=== PATIENT | female | born 1980 | race African-American/Black ===

== ENCOUNTER 2017-06-13 21:33 | Emergency (ER) | payer OTHER ==
[~2017-06-13] VITALS: Ht 162.6 cm; Wt 59.0 kg
[~2017-06-13 21:33] MED LIST: ALBUTEROL SULF8.5 GM INH; AMOXICILLIN500 MG ORAL; AZITHROMYCIN250 MG ORAL; CLARITIN10 M2 ORAL; FAMOTIDINE20 MG ORAL; IBUPROFEN600 MG ORAL; NKM; PREDNISONE20 M1 PO; PROMETH-CODEIN 65 ML PO; PROMETHAZINE-D118 ML ORAL
[2017-06-13 22:20] VITALS: BP 127/80
[2017-06-13] MEDS ORDERED: METROGEL-VAGINA70 G1 VAGIN (23:15)
[2017-06-13] MEDS ORDERED: KEFLEX500 MG ORAL (23:15)
[2017-06-13 23:22] LABS: APPEARANCE,URINE SLIGHTLY CLOUDY; KETONES,URINE NEGATIVE (NEGATIVE); LEUKOCYTE ESTERASE ,URINE 2+ (NEGATIVE); NITRITE,URINE NEGATIVE (NEGATIVE); PH,URINE 8 (4.5-8.0); PROTEIN,URINE NEGATIVE (NEGATIVE); UROBILINOGEN,URINE 1 MG/DL (0.0-1.0)
[2017-06-13 23:29] VITALS: BP 116/71
[2017-06-13 23:33] LABS: BACTERIA,URINE MANY /HPF; SQUAMOUS EPITHELIAL CELL,UR MODERATE /LPF (NONE/OCC)
[2017-06-13 23:34] LABS: TRICHOMONAS,URINE FEW /HPF; WBC,URINE 30-40 /HPF (0 - 2)
--- NOTE | 2017-06-14 03:24 | Emergency Room Report ---
History of Present Illness General Chief Complaint: Female Urogenital Problems Source: Patient Present Illness HPI Patient 37-year-old female who presented after increased dysuria. The patient gradual onset of symptoms. Patient stated that she had increased urinary frequency with associated increased vaginal discharge. Patient denied any to whitish discoloration of discharge. She stated this was slightly malodorous. She denied any fever. Patient denied vomiting Allergies: Uncoded Allergies: DIMETAP (Allergy, Intermediate, Rash, 07/19/15) Patient History Last Menstrual Period: 06/02/17 Now: No Reviewed Nursing Documentation: PMH: Agreed, PSxH: Agreed Nursing Documentation-PMH Past Medical History: No Stated History Hx Hypertension: Yes Hx Asthma: Yes Physical Exam Vital Signs Date Time Temp Pulse Resp B/P Pulse Ox O2 Delivery O2 Flow Rate FiO2 06/13/17 21:40 98.2 87 16 92/63 99 Room Air General Appearance: well appearing, no apparent distress, alert, GCS 15 Head: normocephalic, atraumatic ENT: hearing grossly normal, normal voice Neck: full range of motion, supple Respiratory: no respiratory distress, speaking full sentences Cardiovascular #1: normal peripheral pulses, regular rate, rhythm, no edema Gastrointestinal: normal bowel sounds, non tender, soft, no mass Genitourinary: normal inspection, no CVA tenderness Musculoskeletal: no calf tenderness Neurologic: alert, oriented x3, normal gait Psychiatric: mood/affect normal Skin: no rash Medical Decision Making Diagnostic Impression: Primary Impression: Urinary tract infection Additional Impression: Trichomonas infection ER Course Patient presented for dysuria. Differential diagnosis included was not limited to appendicitis, urinary tract infection, pelvic inflammatory disease, urethritis, herpes among others. Patient's benign exam and does not appear to require any further imaging or laboratory testing at this time. Urine test was negative. The patient is advised followup with her [employer] for evaluation of her IUD. The patient is given prescription for MetroGel and Keflex. The patient is advised to follow up with primary care doctor in 1-2 days. Patient is advised to return if any worsening condition or if any changes in status that are concerning. Labs Test 06/13/17 22:17 Urine Color Pale yellow Urine Appearance Slightly cloudy Urine pH 8 (4.5-8.0) Urine Specific [place] 1.015 (1.005-1.035) Urine Protein Negative (NEGATIVE) Urine Glucose (UA) Negative (NEGATIVE) Urine Ketones Negative (NEGATIVE) Urine Occult Blood Negative (NEGATIVE) Urine Nitrite Negative (NEGATIVE) Urine Bilirubin Negative (NEGATIVE) Urine Urobilinogen 1 MG/DL (0.0-1.0) Urine Leukocyte Esterase 2+ (NEGATIVE) Urine RBC 2-4 /HPF (0 - 2) Urine WBC 30-40 /HPF (0 - 2) Urine Squamous Epithelial Cells Moderate /LPF (NONE/OCC) Urine Bacteria Many /HPF (NONE) Urine Trichomonas Few /HPF (NONE) Urine HCG, Qualitative Negative Last Vital Signs Date Time Temp Pulse Resp B/P Pulse Ox O2 Delivery O2 Flow Rate FiO2 06/13/17 23:29 72 18 116/71 99 Room Air 06/13/17 22:20 98.8 Status: improved Disposition: HOME, SELF-CARE Condition: Stable Scripts Metronidazole* (METROGEL-VAGINAL*) 70 Gm Gel.w.appl 1 APPL VAGIN EVERY 12 HOURS, #70 GM Prov: Maycol Garcia 06/13/17 Cephalexin* (KEFLEX*) 500 Mg Capsule 500 MG ORAL Q6H, #28 CAP 0 Refills Prov: Maycol Garcia 06/13/17 Patient Instructions: Urinary Tract Infection Maycol Garcia Jun 14, 2017 03:23
== END 2017-06-13 23:31 | disposition home or self-care (01) ==
LOC: EMR 22:05
DX: N39.0 Urinary tract infection, site not specified (principal); A59.9 Trichomoniasis, unspecified; I10 Essential (primary) hypertension; J45.909 Unspecified asthma, uncomplicated
CPT/HCPCS: 81003; 81025; 87086; 87181; 99284

== ENCOUNTER 2017-06-28 21:13 | Emergency (ER) | payer OTHER ==
[~2017-06-28] VITALS: Ht 165.1 cm; Wt 59.0 kg
[~2017-06-28 21:13] MED LIST changes: +KEFLEX500 MG ORAL; +METROGEL-VAGINA70 G1 VAGIN
[2017-06-28] MEDS ORDERED: NKM (21:31)
--- NOTE | 2017-06-28 21:49 | Emergency Room Report ---
History of Present Illness General Chief Complaint: Upper Extremity Injury Source: Patient Present Illness HPI Is a 37-year-old female who is right-hand dominant. She presents with chief complaint of left thumb pain. She was riding a mechanical bull at a constitution party last night. She was multiple. She complaining of left thumb pain. Also with bruising to the left lower leg. Pain is 9/10. Worse with movement. No other injury. Did not pass out. Allergies: Uncoded Allergies: DIMETAP (Allergy, Intermediate, Rash, 07/19/15) Patient History Past Medical History: see triage record, old chart reviewed Past Surgical History: none Pertinent Family History: none Social History: Denies: smoking Last Menstrual Period: May Now: No Immunizations: other Reviewed Nursing Documentation: PMH: Agreed, PSxH: Agreed Nursing Documentation-PMH Hx Hypertension: Yes Hx Asthma: Yes Review of Systems Eye: Denies: eye pain, blurred vision ENT: Denies: ear pain, nose congestion, throat swelling Respiratory: Denies: cough, shortness of breath Cardiovascular: Denies: chest pain, palpitations Gastrointestinal: Denies: abdominal pain, diarrhea, nausea, vomiting Musculoskeletal: Reports: joint pain, muscle pain, Denies: back pain Skin: Denies: rash Neurological: Denies: headache, numbness Endocrine: Denies: increased thirst, increased urine Hematologic/Lymphatic: Denies: easy bruising All Other Systems: negative except mentioned in HPI Physical Exam Vital Signs Date Time Temp Pulse Resp B/P (MAP) Pulse Ox O2 Delivery O2 Flow Rate FiO2 06/28/17 21:24 98.1 72 16 113/78 99 Room Air vitals varun Sp02 EP Interpretation: reviewed, normal General Appearance: well appearing, no apparent distress, alert Head: normocephalic, atraumatic Eyes: bilateral eye PERRL, bilateral eye EOMI ENT: hearing grossly normal, normal pharynx Neck: full range of motion, supple, no meningismus Respiratory: chest non-tender, lungs clear, normal breath sounds Cardiovascular #1: regular rate, rhythm, no murmur Gastrointestinal: normal bowel sounds, non tender, no mass, no organomegaly, no bruit, non-distended Musculoskeletal: back normal, gait/station normal, normal range of motion, other - Left thumb: Tenderness of the base of the thumb. Mild edema. No deformity. No laxity. Sensation normal. Psychiatric: mood/affect normal Skin: warm/dry Procedures Splinting Splinting : Consent: Verbal Location: Left thumb Splint: thumb spica Pre-Proc Neuro Vasc Exam: normal Post-Proc Neuro Vasc Exam: normal Patient Tolerated: Well Complications: None Medical Decision Making Diagnostic Impression: Primary Impression: Left thumb sprain Qualified Codes: S63.642A - Sprain of metacarpophalangeal joint of left thumb , initial encounter Additional Impression: Contusion of left lower leg, initial encounter ER Course Patient with soft tissue injury secondary to fall. No fracture or dislocation. Other X-Ray Diagnostic Results Other X-Ray Diagnostic Results : X-Ray ordered: Left thumb x rays # of Views/Limited Vs Complete: 3 View Indication: Pain EP Interpretation: Yes Interpretation: no dislocation, no soft tissue swelling, no fractures Impression: No acute disease Interpreting ER Provider: Electronically signed by Raffy Britt MD Last Vital Signs Date Time Temp Pulse Resp B/P (MAP) Pulse Ox O2 Delivery O2 Flow Rate FiO2 06/28/17 21:24 98.1 72 16 113/78 99 Room Air Status: improved Disposition: HOME, SELF-CARE Condition: Stable Scripts Ibuprofen* (MOTRIN*) 600 Mg Tablet 600 MG ORAL THREE TIMES A DAY, #30 TAB 0 Refills Prov: RAFFY BRITT M.D. 06/28/17 Additional Instructions: Followup with your DrTish in 7 days. Ice pack to the area. Return if symptom worsen. RAFFY BRITT M.D. Jun 28, 2017 21:49
[2017-06-28] MEDS ORDERED: Norco 5mg/325mg tab ORAL ONE (22:00)
[2017-06-28] MEDS ORDERED: IBUPROFEN600 MG ORAL (22:37)
[2017-06-28 22:46] VITALS: BP 120/88
--- NOTE | 2017-06-29 09:57 | Diagnostic Imaging Report ---
Indication: PAIN Technique: 3 views of the left first digit Comparison: None Findings: No acute fractures. No dislocations. Joint spaces are preserved. No radiopaque foreign body Impression: Negative
== END 2017-06-28 22:46 | disposition home or self-care (01) ==
LOC: EMR 21:40
DX: S63.642A Sprain of metacarpophalangeal joint of left thumb, initial encounter (principal); S80.12XA Contusion of left lower leg, initial encounter; I10 Essential (primary) hypertension; J45.909 Unspecified asthma, uncomplicated; Z88.8 Allergy status to other drugs, medicaments and biological substances; W17.89XA Other fall from one level to another, initial encounter; Y92.9 Unspecified place or not applicable
CPT/HCPCS: 99283

== ENCOUNTER 2017-11-08 17:47 | Emergency (ER) | payer MEDICAID, OTHER ==
[~2017-11-08] VITALS: Ht 162.6 cm; Wt 59.0 kg
[2017-11-08] MEDS ORDERED: NKM (18:05)
[2017-11-08 18:36] LABS: APPEARANCE,URINE CLEAR; BILIRUBIN, URINE NEGATIVE (NEGATIVE); COLOR,URINE PALE YELLOW; GLUCOSE, URINE (UA) NEGATIVE (NEGATIVE); KETONES,URINE NEGATIVE (NEGATIVE); LEUKOCYTE ESTERASE ,URINE 3+ (NEGATIVE); NITRITE,URINE NEGATIVE (NEGATIVE); PH,URINE 6.5 (4.5-8.0); PROTEIN,URINE NEGATIVE (NEGATIVE); UROBILINOGEN,URINE 1 MG/DL (0.0-1.0)
[2017-11-08 18:42] LABS: BASOPHILS % (AUTO) 1.9 % (0.0-2.0); EOSINOPHILS % (AUTO) 0.3 % (0.0-3.0); HEMATOCRIT 42.1 % (37.0-47.0); HEMOGLOBIN 12.7 G/DL (12.0-16.0); MEAN CORPUSCULAR VOLUME 93 FL (80-99); MONOCYTES % (AUTO) 6.4 % (1.0-10.0); NEUTROPHILS % (AUTO) 73.4 % (45.0-75.0); PLATELET COUNT 173 K/UL (150-450); RED BLOOD COUNT 4.51 M/UL (4.20-5.40); WHITE BLOOD COUNT 12.1 K/UL (4.8-10.8)
[2017-11-08 18:44] LABS: INR 1.1 (0.9-1.1)
[2017-11-08 18:45] LABS: ANION GAP 8 mmol/L (5-15); BLOOD UREA NITROGEN 12 mg/dL (7-18); CALCIUM 9.2 MG/DL (8.5-10.1); CARBON DIOXIDE 29 MMOL/L (21-32); CHLORIDE 105 MMOL/L (98-107); CREATININE 1.1 MG/DL (0.55-1.30); POTASSIUM 3.5 MMOL/L (3.5-5.1); SODIUM 142 MMOL/L (136-145)
[2017-11-08 18:51] LABS: ALANINE AMINOTRANSFERASE 19 U/L (12-78); ALBUMIN 3.6 G/DL (3.4-5.0); ALBUMIN/GLOBULIN RATIO 0.9 (1.0-2.7); ALKALINE PHOSPHATASE 111 U/L (46-116); ASPARTATE AMINO TRANSFERASE 14 U/L (15-37); BILIRUBIN,TOTAL 0.2 MG/DL (0.2-1.0)
[2017-11-08 19:48] VITALS: BP 129/79
[2017-11-08] MEDS ORDERED: IBUPROFEN600 MG ORAL (20:22)
[2017-11-08] MEDS ORDERED: NITROFURANTOIN100 M2 ORAL (20:22)
[2017-11-08 20:30] VITALS: BP 129/79
--- NOTE | 2017-11-08 21:04 | Emergency Room Report ---
History of Present Illness General Chief Complaint: Abdominal Pain Source: Patient Present Illness HPI The patient is a 37-year-old female who denies any medical history presenting for right-sided abdominal pain for the past 2 days. Pain is an 8/10 pinching sensation to the right mid and lower abdomen. Does not radiate. Worse with movement. She also admits to increased urinary frequency but denies other symptoms including nausea, vomiting, fever, chills, hematuria, dysuria, vaginal discharge Allergies: Uncoded Allergies: DIMETAP (Allergy, Intermediate, Rash, 07/19/15) Patient History Past Medical History: see triage record Pertinent Family History: none Last Menstrual Period: 10/17/2017 Now: No Reviewed Nursing Documentation: PMH: Agreed, PSxH: Agreed Nursing Documentation-PMH Past Medical History: No Stated History Hx Hypertension: Yes Hx Asthma: Yes Review of Systems All Other Systems: negative except mentioned in HPI Physical Exam Vital Signs Date Time Temp Pulse Resp B/P (MAP) Pulse Ox O2 Delivery O2 Flow Rate FiO2 11/08/17 18:02 100.4 99 18 122/84 99 Room Air Sp02 EP Interpretation: reviewed, normal General Appearance: no apparent distress, alert, GCS 15, non-toxic Head: normocephalic, atraumatic Eyes: bilateral eye normal inspection, bilateral eye PERRL ENT: hearing grossly normal, normal pharynx, no angioedema, normal voice Neck: full range of motion, supple/symm/no masses Respiratory: chest non-tender, lungs clear, normal breath sounds, speaking full sentences Cardiovascular #1: regular rate, rhythm, no edema Gastrointestinal: tenderness - RUQ, RLQ Musculoskeletal: back normal, gait/station normal, normal range of motion, non- tender Neurologic: alert, oriented x3, responsive, motor strength/tone normal, sensory intact, speech normal Psychiatric: judgement/insight normal, memory normal, mood/affect normal, no suicidal/homicidal ideation Skin: normal color, no rash, warm/dry, well hydrated Medical Decision Making PA Attestation Dr. Weston is my supervising physician. Patient management was discussed with my supervising physician Diagnostic Impression: Primary Impression: UTI (urinary tract infection) Qualified Codes: N39.0 - Urinary tract infection, site not specified Additional Impression: Abdominal pain Qualified Codes: R10.9 - Unspecified abdominal pain ER Course The patient is a 37-year-old female who denies any medical history presenting for right-sided abdominal pain for the past 2 days Differential diagnoses considered include but not limited to gastritis, pancreatitis, appendicitis, AAA, ACS, , UTI PE: Initially febrile at 100.4F NAD. Abdomen: Normal appearance. Non distended. No ecchymosis. Normal BS. Non TTP. No McBurney point tenderness. No guarding. No CVA tenderness CT: No appendicitis. No SBO or diverticulitis. No hydronephrosis. Possible stranding in pelvis. Will correlates with possible cystitis or PID Labs: leukocytosis of 12.1 with UA showing WBCs and leukocyte esterase The patient will be treated for UTI. ER precautions are given Labs Test 11/08/17 18:08 11/08/17 18:21 Urine Color Pale yellow Urine Appearance Clear Urine pH 6.5 (4.5-8.0) Urine Specific [place] 1.010 (1.005-1.035) Urine Protein Negative (NEGATIVE) Urine Glucose (UA) Negative (NEGATIVE) Urine Ketones Negative (NEGATIVE) Urine Occult Blood Negative (NEGATIVE) Urine Nitrite Negative (NEGATIVE) Urine Bilirubin Negative (NEGATIVE) Urine Urobilinogen 1 MG/DL (0.0-1.0) Urine Leukocyte Esterase 3+ (NEGATIVE) Urine RBC 0-2 /HPF (0 - 2) Urine WBC 5-10 /HPF (0 - 2) Urine Squamous Epithelial Cells Few /LPF (NONE/OCC) Urine Bacteria Few /HPF (NONE) Urine HCG, Qualitative Negative White Blood Count 12.1 K/UL (4.8-10.8) Red Blood Count 4.51 M/UL (4.20-5.40) Hemoglobin 12.7 G/DL (12.0-16.0) Hematocrit 42.1 % (37.0-47.0) Mean Corpuscular Volume 93 FL (80-99) Mean Corpuscular Hemoglobin 28.1 PG (27.0-31.0) Mean Corpuscular Hemoglobin Concent 30.1 G/DL (32.0-36.0) Red Cell Distribution Width 11.0 % (11.6-14.8) Platelet Count 173 K/UL (150-450) Mean Platelet Volume 9.7 FL (6.5-10.1) Neutrophils (%) (Auto) 73.4 % (45.0-75.0) Lymphocytes (%) (Auto) 18.0 % (20.0-45.0) Monocytes (%) (Auto) 6.4 % (1.0-10.0) Eosinophils (%) (Auto) 0.3 % (0.0-3.0) Basophils (%) (Auto) 1.9 % (0.0-2.0) Prothrombin Time 11.2 SEC (9.30-11.50) Prothromb Time International Ratio 1.1 (0.9-1.1) Activated Partial Thromboplast Time 28 SEC (23-33) Sodium Level 142 MMOL/L (136-145) Potassium Level 3.5 MMOL/L (3.5-5.1) Chloride Level 105 MMOL/L (98-107) Carbon Dioxide Level 29 MMOL/L (21-32) Anion Gap 8 mmol/L (5-15) Blood Urea Nitrogen 12 mg/dL (7-18) Creatinine 1.1 MG/DL (0.55-1.30) Estimat Glomerular Filtration Rate > 60 mL/min (>60) Glucose Level 99 MG/DL (74-106) Calcium Level 9.2 MG/DL (8.5-10.1) Total Bilirubin 0.2 MG/DL (0.2-1.0) Aspartate Amino Transf (AST/SGOT) 14 U/L (15-37) Alanine Aminotransferase (ALT/SGPT) 19 U/L (12-78) Alkaline Phosphatase 111 U/L (46-116) Total Protein 7.8 G/DL (6.4-8.2) Albumin 3.6 G/DL (3.4-5.0) Globulin 4.2 g/dL Albumin/Globulin Ratio 0.9 (1.0-2.7) Lipase 93 U/L (73-393) Lab Results Impression leukocytosis of 12.1 with UA showing WBCs and leukocyte esterase CT/MRI/US Diagnostic Results CT/MRI/US Diagnostic Results : Imaging Test Ordered: CT ABD/PELVIS Impression No appendicitis. No SBO or diverticulitis. No hydronephrosis. Possible stranding in pelvis. Will correlates with possible cystitis or PID Last Vital Signs Date Time Temp Pulse Resp B/P (MAP) Pulse Ox O2 Delivery O2 Flow Rate FiO2 11/08/17 20:30 99.4 74 14 129/79 97 Room Air Status: improved Disposition: HOME, SELF-CARE Condition: Improved Scripts Nitrofurantoin Monohyd/M-Cryst* (MACROBID 100 MG*) 100 Mg Capsule 100 MG ORAL EVERY 12 HOURS, #14 CAP Prov: ORIANA ADHIKARI 11/08/17 Ibuprofen* (MOTRIN*) 600 Mg Tablet 600 MG ORAL Q8H Y for For Pain, #30 TAB 0 Refills Prov: ORIANA ADHIKARI 11/08/17 Patient Instructions: Abdominal Pain, Adult Additional Instructions: I discussed my findings with the patient. All questions and concerns have been answered. Treatment and medication compliance have been addressed. I advised the patient that they need to follow up with PMD in 3-5 days. Return to ED if symptoms worsen, new symptoms arise, or if needed for any reason. Patient verbalized understanding of discharge instructions. ORIANA ADHIKARI Nov 08, 2017 21:04
--- NOTE | 2017-11-09 16:59 | Diagnostic Imaging Report ---
Indication: Abdominal pain Technique: CT of the abdomen and pelvis utilizing automated exposure control with intravenous contrast. Venous scanning performed. CT dose: Total DLP 558.81 mGycm; CTDI vol 10.04 mGy Comparison: None Findings: Dependent atelectasis noted in the lung bases. Heart is borderline enlarged. There is no pericardial effusion. Bilateral breast implants noted. Multiple subcentimeter, well-circumscribed low-attenuation lesions are noted within the right hepatic lobe which are too small to definitively characterize but likely represent simple hepatic cysts. Gallbladder is contracted, limiting its evaluation but otherwise unremarkable. Spleen, adrenal glands and pancreas are grossly unremarkable. Kidneys enhance symmetrically. No urinary tract stone or hydronephrosis bilaterally. Bladder is unremarkable in appearance on CT. An IUD is noted in place. There is a possible 1.4 cm left adnexal cyst. Right ovary not definitively visualized. There may be possible stranding in the pelvis. There is no bowel obstruction. No free intraperitoneal air or fluid is identified. No appreciable focal or diffuse abnormal bowel wall thickening is seen. Appendix is not definitively identified however there is no focal inflammatory change in the right lower quadrant to suggest appendicitis. Abdominal aorta is normal in caliber. No bulky abdominal or pelvic lymphadenopathy is appreciated. No acute osseous abnormality seen. Impression: No evidence of small bowel obstruction. No definite evidence to suggest appendicitis. Possible mild stranding in the pelvis. Correlate clinically for cystitis or pelvic inflammatory disease. IUD in place. Likely small left adnexal cyst. Additional findings as above. This corresponds with the statrad preliminary report.. The CT scanner at [facility] is accredited by the [employer] and the scans are performed using protocols designed to limit radiation exposure to as low as reasonably achievable to attain images of sufficient resolution adequate for diagnostic evaluation.
== END 2017-11-08 20:30 | disposition home or self-care (01) ==
LOC: EMR 18:05
DX: N39.0 Urinary tract infection, site not specified (principal); I10 Essential (primary) hypertension; J45.909 Unspecified asthma, uncomplicated; Z97.5 Presence of (intrauterine) contraceptive device
CPT/HCPCS: 36415; 74177; 80053; 81003; 81025; 83690; 85025; 85610; 85730; 96360; 99284; Q9967

== ENCOUNTER 2018-10-06 11:33 | Emergency (ER) | payer MEDICAID ==
[~2018-10-06] VITALS: Ht 165.1 cm; Wt 59.0 kg
[~2018-10-06 11:33] MED LIST changes: +NITROFURANTOIN100 M2 ORAL
[2018-10-06 11:43] VITALS: BP 123/79
[2018-10-06] MEDS ORDERED: VALACYCLOVIR500 MG ORAL (12:02)
[2018-10-06 12:07] VITALS: BP 123/79
--- NOTE | 2018-10-06 13:25 | Emergency Room Report ---
History of Present Illness General Chief Complaint: Medication Refill Source: Patient, Medical Record Present Illness HPI Patient presents with reports of a genital herpes breakout Reports that she had contacted her primary physician but was not able to be seen Symptoms ongoing for the past 2 days The last time she had a flareup requiring medication was approximately 12 months ago She has some minimal discomfort Denies any fevers or chills denies any vaginal discharge denies any flank pain Allergies: Coded Allergies: No Known Allergies (Unverified , 10/06/18) Patient History Past Medical History: see triage record Pertinent Family History: none Now: No Reviewed Nursing Documentation: PMH: Agreed; PSxH: Agreed Nursing Documentation-PMH Hx Hypertension: Yes Hx Asthma: Yes Review of Systems All Other Systems: negative except mentioned in HPI Physical Exam Vital Signs Date Time Temp Pulse Resp B/P (MAP) Pulse Ox O2 Delivery O2 Flow Rate FiO2 10/06/18 11:43 98.4 72 19 123/79 98 Room Air Sp02 EP Interpretation: reviewed, normal General Appearance: well appearing, no apparent distress Head: normocephalic, atraumatic Eyes: bilateral eye PERRL, bilateral eye EOMI ENT: normal pharynx Neck: full range of motion, supple Respiratory: lungs clear Cardiovascular #1: regular rate, rhythm Gastrointestinal: non tender Musculoskeletal: normal inspection Neurologic: alert, oriented x3, responsive Skin: other - Pelvic exam deferred Lymphatic: no adenopathy Medical Decision Making Diagnostic Impression: Primary Impression: genital herpes ER Course Given the patient's clinical history exam and presentation Sounds to have findings consistent with genital herpes outbreak patient is provided with her previous medications And stable for close outpatient follow-up Last Vital Signs Date Time Temp Pulse Resp B/P (MAP) Pulse Ox O2 Delivery O2 Flow Rate FiO2 10/06/18 12:07 98.4 72 19 123/79 98 Room Air Status: unchanged Disposition: HOME, SELF-CARE Condition: Stable Scripts Valacyclovir Hcl* (VALTREX*) 500 Mg Tablet 500 MG ORAL TWICE A DAY for 5 Days, TAB Prov: Ciro Lopes DO 10/06/18 Referrals: NON PHYSICIAN (PCP) Patient Instructions: Genital Herpes Additional Instructions: Patient is provided with the discharge instructions notified to follow up with primary doctor in the next 2-3 days otherwise return to the er with any worsening symptoms. Please note that this report is being documented using [employer] technology. This can lead to erroneous entry secondary to incorrect interpretation by the dictating instrument. Ciro Lopes DO Oct 06, 2018 13:25
== END 2018-10-06 12:07 | disposition home or self-care (01) ==
LOC: EMR 12:07
DX: A60.00 Herpesviral infection of urogenital system, unspecified (principal); I10 Essential (primary) hypertension; J45.909 Unspecified asthma, uncomplicated
CPT/HCPCS: 99282